=== PATIENT | female | born 1990 ===

== ENCOUNTER 2021-04-09 14:28 | Emergency (ER) | payer MEDICAID, OTHER ==
[~2021-04-09] VITALS: Ht 172.7 cm; Wt 77.1 kg
[2021-04-09 14:33] VITALS: BP 110/70
== END 2021-04-09 16:40 | disposition home or self-care (01) ==
LOC: ER 14:28
DX: S93.402A Sprain of unspecified ligament of left ankle, initial encounter (principal); Z88.8 Allergy status to other drugs, medicaments and biological substances; X50.1XXA Overexertion from prolonged static or awkward postures, initial encounter; Y93.89 Activity, other specified; Y92.89 Other specified places as the place of occurrence of the external cause; Y99.8 Other external cause status
CPT/HCPCS: 73610